=== PATIENT | male | born 1980 | race Caucasian/White ===

== ENCOUNTER 2016-08-14 12:47 | Emergency (ER) | payer SELFPAY ==
--- NOTE | ~2016-08-14 | CT71 ---
[facility] A Service of [facility] RADIOLOGY TEXT RESULTS PATIENT: VIET CORDERO LOCATION: [place] : [birth year] UNIT #: [id number] AGE: [address]: Joaquin Pennington SEX: M ORDER DR: [id number] [address] [address] [id number] E MR#: [id number] Acc #: [id number] NAME: VIET CORDERO : 1980 SEX: M STUDY DATE/TIME: 08/14/2016 13:20 UNIT: [id number] ROOM: STUDY DESCRIPTION: CT Head Wo Contrast Ordering Physician: Joaquin Pennington MEDICAL IMAGING REPORT This report is preliminary unless electronic signature is present EXAM Head CT, no contrast, 08/14/2016 TECHNIQUE Axial unenhanced head CT. This CT exam was performed with one or more of the following radiation dose reduction techniques: automatic exposure control, adjustment of mA and/or kV according to patient size, and iterative reconstruction. COMPARISON STUDIES None. HISTORY Intermittent headache for 3 days. FINDINGS There is no intracranial hemorrhage or mass. Brain parenchymal density is normal. There is no hydrocephalus. There is a prominent cisterna magna but the exam is otherwise unremarkable. IMPRESSION Normal negative unenhanced head CT. Dictated by... Horacio Mack M.D. THIS IS AN ELECTRONICALLY VERIFIED REPORT Horacio Mack M.D. at 08/15/2016 3:58 PM TEV/pcl [facility] A Service of [facility] RADIOLOGY TEXT RESULTS PATIENT: VIET CORDERO LOCATION: [place] : [birth year] UNIT #: [id number] AGE: [address]: Joaquin Pennington SEX: M ORDER DR: TD: 08/14/2016 15:54 JOB #: [id number] MEDICAL IMAGING REPORT Page 1 of 1 COPY
[~2016-08-14 12:47] MED LIST: FLEXERIL PO; FLEXERIL10 MG PO; KEFLEX500 MG PO; KETOPROFEN PO; LORTAB 5/500 TA1 TA1 PO; MEDROL PO; NAPROXEN; NO MEDICATIONS; ORUDIS75 M1 DOB; VICODIN 5/500 T1 TAB PO; ZOFRAN PO
== END 2016-08-14 16:03 | disposition home or self-care (01) ==
LOC: CED 12:47
DX: R51 Headache (principal); F17.210 Nicotine dependence, cigarettes, uncomplicated; Z90.89 Acquired absence of other organs
CPT/HCPCS: 70450; 96372; 99284; J1885

== ENCOUNTER 2017-01-01 23:38 | Emergency (ER) | payer SELFPAY ==
[~2017-01-01] VITALS: Ht 185.4 cm; Wt 145.1 kg
--- NOTE | ~2017-01-01 | CR72 ---
[facility] A Service of [facility] RADIOLOGY TEXT RESULTS PATIENT: VIET CORDERO LOCATION: [facility] : 76 UNIT #: [id number] AGE: [address]: Manuel Torrez MD SEX: M ORDER DR: [id number] [facility] [address] [place], [place] [address] [id number] E MR#: [id number] Acc #: [id number] NAME: VIET CORDERO : 1980 SEX: M STUDY DATE/TIME: 01/02/2017 2:55 UNIT: [facility] ROOM: STUDY DESCRIPTION: CR Chest Single View Portable Attending Physician: Manuel Torrez M.D. Ordering Physician: Manuel Torrez M.D. Primary Care Physician: No Primary Care Physician MEDICAL IMAGING REPORT This report is preliminary unless electronic signature is present EXAM Portable chest. INDICATIONS Chest pain and cough since Sunday. PROCEDURE Frontal view chest. COMPARISON None. FINDINGS Heart size normal. Lungs are clear. No pleural fluid or pneumothorax. IMPRESSION No active process. Dictated by... Nicolás Cosby M.D. THIS IS AN ELECTRONICALLY VERIFIED REPORT Nicolás Cosby M.D. at 01/04/2017 10:01 PM RENE/eric TD: 01/02/2017 07:22 JOB #: [id number] MEDICAL IMAGING REPORT Page 1 of 1 COPY
== END 2017-01-02 03:48 | disposition home or self-care (01) ==
LOC: CED 23:38
DX: S20.212A Contusion of left front wall of thorax, initial encounter (principal); F17.200 Nicotine dependence, unspecified, uncomplicated; W18.30XA Fall on same level, unspecified, initial encounter
CPT/HCPCS: 71010; 99283